=== PATIENT | male | born 1975 | race Caucasian/White ===

== ENCOUNTER 2019-08-24 01:40 | Day surgery (SDC) | payer BC, SELFPAY ==
[2019-08-02 13:13] VITALS: BMI 24.9
[2019-08-24 12:47] VITALS: BP 133/87; PULSE 66; RESP 18; TEMP 36.5; O2SAT 100
[2019-08-24] MEDS: LACTATED RINGERS 1,000 ML 150 ML IV CONT (12:53)
--- NOTE | 2019-08-24 13:12 | WPDANESEPPF ---
Anes - Initial Pre Proc Eval Procedure: Operation Date: 08/24/19 14:00 Proposed Procedures p Esophagogastroduodenoscopy - James Pittman MD Date/Time: 08/24/19 13:12 Surgeon: James Pittman MD Pre Op Diagnosis: Dysphagia Patient Data Age: 43 Gender: M Height: 5 ft 11 in Weight: 81.4 kg Last Vital Signs Temp 97.7 F 08/24/19 12:47 Pulse 66 08/24/19 12:47 Resp 18 08/24/19 12:47 BP 133/87 08/24/19 12:47 Pulse Ox 100 08/24/19 12:47 Allergies Allergy/AdvReac Type Severity Reaction Status Date / Time No Known Allergies Allergy Verified 08/24/19 12:42 Home Medications Medication Instructions Recorded Confirmed Type albuterol sulfate 90 mcg/actuation 1 puff INHALATION Q4-6H PRN gm 07/21/19 08/02/19 History aerosol inhaler atorvastatin 40 mg tablet 40 mg PO DAILY #90 tablet 07/27/19 08/02/19 Rx Patient hx anesthesia problems: none Family hx anesthesia problems: none PMFSH Past Medical History Medical History (Updated 08/24/19 @ 13:12 by Swapnil Trinidad MD) GERD (gastroesophageal reflux disease) Hyperlipidemia, unspecified Family History Family History (Updated 01/31/16 @ 23:19 by DOCTOR UNKNOWN) Father Family history of lung cancer Mother Family history of malignant neoplasm of breast in first degree relative Other Family history of throat cancer Social History Social History Smoking status: Never smoker Alcohol intake: current Anes - Eval Final PreProcedure Day of Procedure 08/24/19 13:12 Patient weight: normal Heart: regular rate and rhythm Lungs: clear to auscultation Airway: Mallampati scale class II Neurological: alert and oriented Last oral intake: >/= 8 hours ASA classification: II Emergent: no Anesthetic plan: proceed Anesthesia type and monitoring: general GIVS and standard monitoring Informed Consent: The patient's anesthetic plan and its attendant risks and benefits were discussed with the patient/family/POA. Questions were solicited and answers provided to the satisfaction of the patient/family/POA.
--- NOTE | 2019-08-24 13:54 | PM.HPGS ---
History of Present Illness History of Present Illness Consent: Risks, benefits, and alternatives have been discussed and questions answered. Patient agrees to proceed with procedure. Chief complaint: Dysphagia Narrative: Oscar Johnston is a 43 year old male with dysphagia for years, never had egd Review of Systems Constitutional: Constitutional: Denies headache(s) and Denies weakness Eyes: Eyes: Denies blurry vision ENT: Reports Normal hearing present, Denies headache(s) and Denies neck pain Cardiovascular: Cardiovascular: Denies chest pain and Denies dyspnea Respiratory: Respiratory: Denies dyspnea Gastrointestinal: Gastrointestinal: Reports no additional gastrointestinal complaints Genitourinary: Genitourinary: Denies dysuria Musculoskeletal: Musculoskeletal: Denies neck pain Integumentary/Breasts: Skin/Breast: Denies dry skin Neurologic: Reports Normal hearing present, Denies headache(s) and Denies weakness Psychiatric: Psychiatric: Denies anxiety Endocrine: Endocrine: Denies change in body appearance Hematologic/Lymphatic: Hematologic/Lymphatic: Denies easy bleeding Allergic/Immunologic: Allergic/Immunologic: Denies urticaria PMFSH Past Medical History Medical History (Updated 08/24/19 @ 13:55 by James Pittman MD) GERD (gastroesophageal reflux disease) Hyperlipidemia, unspecified Family History Family History (Updated 01/31/16 @ 23:19 by DOCTOR UNKNOWN) Father Family history of lung cancer Mother Family history of malignant neoplasm of breast in first degree relative Other Family history of throat cancer Social History Social History Smoking status: Never smoker Alcohol intake: current Meds Home Medications and Allergies Home Medications Medication Instructions Recorded Confirmed Type albuterol sulfate 90 mcg/actuation 1 puff INHALATION Q4-6H PRN gm 07/21/19 08/02/19 History aerosol inhaler atorvastatin 40 mg tablet 40 mg PO DAILY #90 tablet 07/27/19 08/02/19 Rx Allergies Allergy/AdvReac Type Severity Reaction Status Date / Time No Known Allergies Allergy Verified 08/24/19 12:42 Vital Signs Vital Signs - 24 hr 08/24/19 12:47 Temperature 97.7 F Pulse Rate 66 Respiratory Rate 18 Blood Pressure 133/87 Pulse Oximetry 100 Exam Const: General: comfortable and no acute distress HENMT: General nose exam: Normal nares present Eyes: General: appearance normal, both eyes and all related structures Neck: Neck: no JVD Resp: Auscultation: clear to auscultation bilaterally Cardio: Rate: regular rate Rhythm: regular rhythm GI: Inspection: non-distended GI Palp: Yes Soft to palpation Skin: General skin exam: normal color Neuro: General: gait normal Speech: normal speech Extrem: General: normal to inspection Psych: Mental Status: mental status grossly normal Assessment and Plan Assessment and plan (1) Dysphagia: Qualifiers: Dysphagia type: unspecified Qualified Code(s): R13.10 - Dysphagia, unspecified Code(s): R13.10 - Dysphagia, unspecified Status: Acute Assessment and Plan: will proceed with egd and consider esophageal bx, +/- dilation (2) Mild intermittent asthma without complication: Code(s): J45.20 - Mild intermittent asthma, uncomplicated Status: Acute (3) GERD (gastroesophageal reflux disease): Qualifiers: Esophagitis presence: esophagitis presence not specified Qualified Code(s): K21.9 - Gastro-esophageal reflux disease without esophagitis Code(s): K21.9 - Gastro-esophageal reflux disease without esophagitis Status: Acute
[2019-08-24 14:18] VITALS: BP 101/84; PULSE 69; RESP 16; O2SAT 98
[2019-08-24 14:28] VITALS: BP 110/79; PULSE 64; RESP 16; O2SAT 100
[2019-08-24 14:38] VITALS: BP 129/74; PULSE 65; RESP 16; O2SAT 100
[2019-08-24 14:48] VITALS: BP 112/85; PULSE 68; RESP 20; O2SAT 100
== END 2019-08-24 14:55 | disposition home or self-care (01) ==
PROVIDERS: PCP Internal Medicine; Visit Provider Internal Medicine Gastroenterology
PROC: 0DJ08ZZ Inspection of Upper Intestinal Tract, Via Natural or Artificial Opening Endoscopic (ICD-10-PCS; CPT 43235; principal; 2019-08-24 14:00)
DX: K22.2 Esophageal obstruction (principal); K44.9 Diaphragmatic hernia without obstruction or gangrene; K29.50 Unspecified chronic gastritis without bleeding; K21.0 Gastro-esophageal reflux disease with esophagitis; E78.5 Hyperlipidemia, unspecified
CPT/HCPCS: 43249; 43239; 87081; 88305; C1726; J2704; J7120

== ENCOUNTER 2020-09-16 17:20 | Emergency (ER) | payer OTHER, BC, SELFPAY ==
[2020-09-16 17:24] VITALS: BP 161/100; PULSE 68; RESP 16; TEMP 35.9; O2SAT 100
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
== END 2020-09-16 18:18 | disposition home or self-care (01) ==
LOC: ANHED 17:56
PROVIDERS: Emergency Provider Emergency Medicine; PCP Internal Medicine
DX: M25.551 Pain in right hip (principal); M25.511 Pain in right shoulder; K21.9 Gastro-esophageal reflux disease without esophagitis; E78.5 Hyperlipidemia, unspecified; V53.5XXA Driver of pick-up truck or van injured in collision with car, pick-up truck or van in traffic accident, initial encounter
CPT/HCPCS: 99283

== ENCOUNTER → 2020-10-15 16:09 | Outpatient (REF) | payer BC, SELFPAY | LOC: ANHLAB 16:09 | PROVIDERS: PCP Internal Medicine; Visit Provider Nurse Practitioner | DX: C44.519 Basal cell carcinoma of skin of other part of trunk (principal) | CPT/HCPCS: 88305 ==

== ENCOUNTER → 2020-11-18 07:37 | Outpatient (REF) | payer BC, SELFPAY | LOC: ANHLAB 07:37 | PROVIDERS: PCP Internal Medicine; Visit Provider Nurse Practitioner | DX: C44.519 Basal cell carcinoma of skin of other part of trunk (principal) | CPT/HCPCS: 88305; 88331 ==

== ENCOUNTER 2021-05-12 01:30 | Day surgery (SDC) | payer BC, SELFPAY ==
[2021-04-21 14:14] VITALS: BMI 25.8
[2021-05-12 07:42] VITALS: BP 144/92; PULSE 73; RESP 18; TEMP 37.1; O2SAT 100; BMI 24.1
[2021-05-12] MEDS: LACTATED RINGERS 1,000 ML 150 ML IV CONT (07:48)
--- NOTE | 2021-05-12 07:55 | WPDANESEPPF ---
Anes - Initial Pre Proc Eval Procedure: Operation Date: 05/12/21 08:30 Proposed Procedures p Screening Colonoscopy - James Pittman MD Date/Time: 05/12/21 07:55 Surgeon: James Pittman MD Pre Op Diagnosis: neoplasm screening Patient Data Age: 45 Gender: M Height: 1.8 m Weight: 78.6 kg Last Vital Signs Temp 37.1 C 05/12/21 07:42 Pulse 73 05/12/21 07:42 Resp 18 05/12/21 07:42 BP 144/92 H 05/12/21 07:42 Pulse Ox 100 05/12/21 07:42 Allergies Allergy/AdvReac Type Severity Reaction Status Date / Time No Known Allergies Allergy Verified 05/12/21 07:41 Home Medications Medication Instructions Recorded Confirmed Type albuterol sulfate 90 mcg/actuation 1 puff INHALATION Q4-6H PRN #6.7 g 07/26/20 04/21/21 Rx aerosol inhaler atorvastatin 40 mg tablet 40 mg PO DAILY #90 tablet 07/26/20 04/21/21 Rx lisinopril 40 mg tablet 40 mg PO DAILY #90 tablet 02/03/21 04/21/21 Rx omeprazole 20 mg tablet,delayed 20 mg PO DAILY #90 tablet 04/08/21 04/21/21 Rx release Patient hx anesthesia problems: none Family hx anesthesia problems: none Results Review: All pre-operative results and documents have been reviewed as part of the pre-operative evaluation. [facility] Past Medical History Medical History GERD (gastroesophageal reflux disease) Hyperlipidemia, unspecified Surgical History Surgical History History of appendectomy Family History Family History Father Family history of lung cancer Mother Family history of malignant neoplasm of breast in first degree relative Other Family history of throat cancer Social History Social History Smoking status: Never smoker Second hand tobacco smoke exposure: Yes Alcohol intake: current Drinks per week: 8 Substance use: never Substance use type: does not use Living arrangements: alone Additional occupation/education comments: [employer] Spiritual care concerns: No Anes - Eval Final PreProcedure Day of Procedure 05/12/21 07:55 Patient weight: normal Heart: regular rate and rhythm Lungs: clear to auscultation Airway: Mallampati scale class II Neurological: alert and oriented Last oral intake: >/= 8 hours ASA classification: II Emergent: no Anesthetic plan: proceed Anesthesia type and monitoring: general GIVS and standard monitoring Results Review: All pre-operative results and documents have been reviewed as part of the pre-operative evaluation. Informed Consent: The patient's anesthetic plan and its attendant risks and benefits were discussed with the patient/family/POA. Questions were solicited and answers provided to the satisfaction of the patient/family/POA.
[2021-05-12 08:05] VITALS: BP 134/94; PULSE 70; RESP 20; O2SAT 98
--- NOTE | 2021-05-12 08:14 | PM.HPGS ---
History of Present Illness History of Present Illness Consent: Risks, benefits, and alternatives have been discussed and questions answered. Patient agrees to proceed with procedure. Chief complaint: neoplasm screening Narrative: Oscar Johnston is a 45 year old male here for first screening colonoscopy Review of Systems Constitutional: Constitutional: Denies headache(s) and Denies weakness Eyes: Eyes: Denies blurry vision ENT: Reports Normal hearing present, Denies headache(s) and Denies neck pain Cardiovascular: Cardiovascular: Denies chest pain and Denies dyspnea Respiratory: Respiratory: Denies dyspnea Gastrointestinal: Gastrointestinal: Reports no additional gastrointestinal complaints Genitourinary: Genitourinary: Denies dysuria Musculoskeletal: Musculoskeletal: Denies neck pain Integumentary/Breasts: Skin/Breast: Denies dry skin Neurologic: Reports Normal hearing present, Denies headache(s) and Denies weakness Psychiatric: Psychiatric: Denies anxiety Endocrine: Endocrine: Denies change in body appearance Hematologic/Lymphatic: Hematologic/Lymphatic: Denies easy bleeding Allergic/Immunologic: Allergic/Immunologic: Denies urticaria [facility] Past Medical History Medical History (Updated 05/12/21 @ 08:14 by James Pittman MD) Colon cancer screening GERD (gastroesophageal reflux disease) Hyperlipidemia, unspecified Surgical History Surgical History History of appendectomy Family History Family History Father Family history of lung cancer Mother Family history of malignant neoplasm of breast in first degree relative Other Family history of throat cancer Social History Social History Smoking status: Never smoker Second hand tobacco smoke exposure: Yes Alcohol intake: current Drinks per week: 8 Substance use: never Substance use type: does not use Living arrangements: alone 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 Spiritual care concerns: No Meds Home Medications and Allergies Home Medications Medication Instructions Recorded Confirmed Type albuterol sulfate 90 mcg/actuation 1 puff INHALATION Q4-6H PRN #6.7 g 07/26/20 04/21/21 Rx aerosol inhaler atorvastatin 40 mg tablet 40 mg PO DAILY #90 tablet 07/26/20 04/21/21 Rx lisinopril 40 mg tablet 40 mg PO DAILY #90 tablet 02/03/21 04/21/21 Rx omeprazole 20 mg tablet,delayed 20 mg PO DAILY #90 tablet 04/08/21 04/21/21 Rx release Allergies Allergy/AdvReac Type Severity Reaction Status Date / Time No Known Allergies Allergy Verified 05/12/21 07:41 Vital Signs Vital Signs - 24 hr 05/12/21 07:42 Temperature 98.7 F Pulse Rate 73 Respiratory Rate 18 Blood Pressure 144/92 H Pulse Oximetry 100 Exam Const: General: comfortable and no acute distress HENMT: General nose exam: Normal nares present Eyes: General: appearance normal, both eyes and all related structures Neck: Neck: no JVD Resp: Auscultation: clear to auscultation bilaterally Cardio: Rate: regular rate Rhythm: regular rhythm GI: Inspection: non-distended GI Palp: Yes Soft to palpation Skin: General skin exam: normal color Neuro: General: gait normal Speech: normal speech Extrem: General: normal to inspection Psych: Mental Status: mental status grossly normal Assessment and Plan Assessment and plan (1) Colon cancer screening: Code(s): Z12.11 - Encounter for screening for malignant neoplasm of colon Status: Acute Assessment and Plan: colonoscopy
[2021-05-12 08:35] VITALS: BP 124/80; PULSE 67; RESP 18; O2SAT 98
[2021-05-12 08:45] VITALS: BP 115/82; PULSE 61; RESP 13; O2SAT 96
[2021-05-12 08:55] VITALS: BP 111/82; PULSE 67; RESP 17; O2SAT 96
== END 2021-05-12 09:29 | disposition home or self-care (01) ==
PROVIDERS: PCP Internal Medicine; Visit Provider Internal Medicine Gastroenterology
PROC: 0DJD8ZZ Inspection of Lower Intestinal Tract, Via Natural or Artificial Opening Endoscopic (ICD-10-PCS; CPT 45378; principal; 2021-05-12 08:30)
DX: Z12.11 Encounter for screening for malignant neoplasm of colon (principal); K21.9 Gastro-esophageal reflux disease without esophagitis; E78.5 Hyperlipidemia, unspecified; Z79.51 Long term (current) use of inhaled steroids
CPT/HCPCS: 45378; J2704; J7120

== ENCOUNTER 2023-02-08 12:49 | Outpatient (NON) | payer OTHER, SELFPAY | END 2023-02-08 12:50 | disposition home or self-care (01) | LOC: ANHLAB 02-10 12:53 | PROVIDERS: PCP Internal Medicine; Visit Provider Nurse Practitioner | DX: D48.5 Neoplasm of uncertain behavior of skin (principal) | CPT/HCPCS: 88305 ==